=== PATIENT | male | born 1965 | race American Indian/Alaskan Native ===

== ENCOUNTER 2021-03-25 22:30 | Emergency (ER) | payer SELFPAY ==
[2021-03-26 00:41] VITALS: BP 171/98
[2021-03-26] MEDS ORDERED: TETANUS,DIPH,PERTUSS(ACELL) VACCINE 0.5 ML SYRINGE IM ONE (00:48)
[2021-03-26] MEDS ORDERED: IBUPROFEN 600 MG TAB PO ONE (00:48)
[2021-03-26] MEDS ORDERED: ACETAMINOPHEN 500 MG TAB PO ONE (00:49)
--- NOTE | 2021-03-26 01:30 | XRay Report ---
RIGHT HAND 3 VIEWS INDICATION / CLINICAL INFORMATION: TRAUMA - PAIN COMPARISON: None available. FINDINGS: BONES / JOINT(S): No acute fracture or subluxation. Mild DJD greatest at the first carpometacarpal flor int. Moderate DJD is noted at the distal radioulnar joint. SOFT TISSUES: No significant abnormality. ADDITIONAL FINDINGS: None. Signer Name: Julio Naik MD Signed: 03/26/2021 1:25 AM Workstation Name: [id number]
[2021-03-26] MEDS ORDERED: LIDOCAINE-MPF (1%) 10 MG/1 ML VIAL 5 ML INFILTRATI ONE (01:39)
--- NOTE | 2021-03-26 03:10 | Emergency Department Report ---
ED Upper Extremity Inj HPI - General Chief Complaint: Extremity Injury, Upper Stated Complaint: RT FINGER INJURY Source: patient Mode of arrival: Ambulatory Limitations: No Limitations - History of Present Illness Initial Comments: Patient is a 55-year-old -[place]ish male with a history of hypertension who presents to the ED with complaint of acute onset painful bleeding distal right ring finger laceration on palmar side after a metallic dog slammed onto his right hand about 1 hour ago at work. Patient states that the bleeding is well controlled at this time. Patient states that he is not up-to-date with his tetanus vaccinations. Patient denies loss of consciousness, dizziness, syncope, nausea and vomiting, numbness and tingling or weakness of right hand or right ring finger. MD Complaint: Injury to:: right, finger (ring finger pain with bleeding laceration) -: Sudden, hour(s) (1) Other Extremity Injury: Hand: Right (right ring finger bleeding laceration with pain) Other Injuries: none Handedness: right Place: work Severity scale (0 -10): 7 Improves With: none Worsens With: movement of extremity Context: direct blow (metallic door slammed onto his distal right ring finger causing bleeding laceration), laceration, injury Associated Symptoms: denies other symptoms. denies: weakness, numbness, neck pain, suspects foreign body, nausea/vomiting, heard/felt popping sensat - Related Data Previous Rx's Medication Instructions Recorded Last Taken Type Ibuprofen [Motrin] 800 mg PO Q8HR PRN #30 tablet 03/26/21 Unknown Rx cephALEXin [Keflex] 500 mg PO Q8HR #30 cap 03/26/21 Unknown Rx Allergies Allergy/AdvReac Type Severity Reaction Status Date / Time No Known Allergies Allergy Verified 03/26/21 00:40 ED Review of Systems ROS: Stated complaint: RT FINGER INJURY Other details as noted in HPI Constitutional: denies: chills, fever Eyes: denies: eye pain, eye discharge, vision change ENT: denies: ear pain, throat pain Respiratory: denies: cough, shortness of breath, wheezing Cardiovascular: denies: chest pain, palpitations Endocrine: no symptoms reported Gastrointestinal: denies: abdominal pain, nausea, diarrhea Genitourinary: denies: urgency, dysuria Musculoskeletal: joint swelling (Distal right ring finger pain and swelling), arthralgia (Distal right ring finger bleeding laceration on palmar side with localized tenderness). denies: back pain Skin: other (Bleeding laceration wound on distal right ring finger on palmar side). denies: rash, lesions Neurological: denies: headache, weakness, paresthesias Psychiatric: denies: anxiety, depression Hematological/Lymphatic: denies: easy bleeding, easy bruising ED Past Medical Hx - Past Medical History Hx Hypertension: Yes - Medications Home Medications: Home Medications Medication Instructions Recorded Confirmed Last Taken Type Ibuprofen [Motrin] 800 mg PO Q8HR PRN #30 tablet 03/26/21 Unknown Rx cephALEXin [Keflex] 500 mg PO Q8HR #30 cap 03/26/21 Unknown Rx ED Physical Exam - General Limitations: No Limitations General appearance: alert, in no apparent distress - Head Head exam: Present: atraumatic, normocephalic, normal inspection - Eye Eye exam: Present: normal appearance, PERRL, EOMI Pupils: Present: normal accommodation - ENT ENT exam: Present: normal exam, normal orophraynx, mucous membranes moist, TM's normal bilaterally, normal external ear exam - Neck Neck exam: Present: normal inspection, full ROM - Respiratory Respiratory exam: Present: normal lung sounds bilaterally. Absent: respiratory distress, wheezes, rales, rhonchi, chest wall tenderness, accessory muscle use, decreased breath sounds, prolonged expiratory - Cardiovascular Cardiovascular Exam: Present: normal rhythm, bradycardia, normal heart sounds. Absent: systolic murmur, diastolic murmur, rubs, gallop - GI/Abdominal GI/Abdominal exam: Present: soft, normal bowel sounds. Absent: tenderness, guarding, rebound, hyperactive bowel sounds, hypoactive bowel sounds, organomegaly - Extremities Exam Extremities exam: Present: normal inspection, full ROM, tenderness (Palpable severe right ring finger tenderness due to a bleeding 3 cm laceration on palmar side), normal capillary refill. Absent: pedal edema, joint swelling, calf tenderness, other - Back Exam Back exam: Present: normal inspection, full ROM. Absent: tenderness, CVA tenderness (R), CVA tenderness (L), muscle spasm, paraspinal tenderness, vertebral tenderness - Neurological Exam Neurological exam: Present: alert, oriented X3, CN II-XII intact, normal gait, reflexes normal - Psychiatric Psychiatric exam: Present: normal affect, normal mood - Skin Skin exam: Present: warm, dry, intact, normal color, ecchymosis (Moderate dorsal right ring and middle finger ecchymosis on the nailbed), other (Bleeding distal right ring finger 3 cm laceration on palmar side). Absent: rash ED Course Vital Signs 03/26/21 00:30 Temperature 97.9 F Pulse Rate 57 L Respiratory 18 Rate Blood Pressure 171/98 O2 Sat by Pulse 100 Oximetry - Laceration /Wound Repair Right Distal Palm Finger Wound Location: upper extremity (distal right ring finger laceration on palmar side) Wound Length (cm): 3 Wound's Depth, Shape: superficial, irregular Wound Explored: contaminated Irrigated w/ Saline (ccs): 150 Betadine Prep?: Yes Anesthesia: 1% Lidocaine Volume Anesthetic (ccs): 5 Wound Debrided: extensive Wound Repaired With: sutures Suture Size/Type: 4:0, proline Number of Sutures: 7 Layer Closure?: No Sterile Dressing Applied?: Yes Progress: The wound was cleaned extensively with normal saline and Betadine solutions. Lidocaine 1% solution was injected as a digital block and when anesthesia was fully achieved, the wound was sutured up per protocol with Prolene 4-0 Prolene sutures. The patient tolerated the procedure well. The wound was then dressed appropriately and the patient will discharge home on pain medication and pr ophylactic antibiotics. Patient was advised to return to the ED immediately if symptoms get worse, otherwise advised to return to the ED in 12 to 14 days for suture removal. ED Medical Decision Making - Radiology Data Radiology results: report reviewed, image reviewed [facility] [address] [place] [address] XRay Report Signed Patient: JERRY MCGOVERN MR#: [id number] 4 : 1965 Acct:[id number] Age/Sex: 55 / M ADM Date: 03/25/21 Loc: ED Attending Dr: Ordering Physician: EARLIEN BOOKER Date of Service: 03/26/21 Procedure(s): XR hand 3+V RT Accession Number(s): [id number] cc: EARLINE BOOKER Fluoro Time In Minutes: RIGHT HAND 3 VIEWS INDICATION / CLINICAL INFORMATION: TRAUMA - PAIN COMPARISON: None available. FINDINGS: BONES / JOINT(S): No acute fracture or subluxation. Mild DJD greatest at the first carpometacarpal joint. Moderate DJD is noted at the distal radioulnar joint. SOFT TISSUES: No significant abnormality. ADDITIONAL FINDINGS: None. Signer Name: Julio Naik MD Signed: 03/26/2021 1:25 AM Workstation Name: [id number] Transcribed By: CASTRO Dictated By: Julio Naik MD Electronically Authenticated By: Julio Naik MD Signed Date/Time: 03/26/21124 DD/ 2 TD/TT: - Medical Decision Making This is a 55-year-old -[place]ish male with a history of hypertension who presents to the ED with complaint of acute onset painful bleeding distal right ring finger laceration on palmar side after a metallic door slammed onto his right hand about 1 hour ago at work. Patient states that the bleeding is well controlled at this time. Patient states that he is not up-to-date with his tetanus vaccinations. In the ED, patient is alert and oriented x3 and is not in any distress. Patient was treated for pain and also received booster tetanus vaccination. Right hand x-ray showed no acute fractures or subluxation of distal right middle and ring finger or elsewhere in the right hand. The right ring finger laceration wound was cleaned extensively with normal saline and Betadine solutions. Lidocaine 1% solution was used as a local anesthetic. When anesthesia was fully achieved, the wound was sutured per protocol and the patient tolerated the procedure well. The wound was then dressed appropriately. On reevaluation, patient's pain is well controlled medications. Patient is now arrived neurovascularly intact on distal right ring and middle fingers. Patient was discharged home on pain medications and prophylactic antibiotics and advised to follow-up with his primary care physician in 7 to 10 days for reevaluation or return to the ED immediately if symptoms get worse. Patient was otherwise advised to return to the ED in 12 to 14 days for suture removal. - Differential Diagnosis finger laceration; puncture wound; finger fracture; finger contusion Critical care attestation.: If time is entered above; I have spent that time in minutes in the direct care of this critically ill patient, excluding procedure time. ED Disposition Clinical Impression: Laceration of right ring finger w/o foreign body w/o damage to nail Qualifiers: Encounter type: initial encounter Qualified Code(s): S61.214A - Laceration without foreign body of right ring finger without damage to nail, initial encounter Contusion of right hand including fingers Qualifiers: Encounter type: initial encounter Qualified Code(s): S60.221A - Contusion of right hand, initial encounter; S60.00XA - Contusion of unspecified finger without damage to nail, initial encounter Disposition: 01 HOME / SELF CARE / HOMELESS Is pt being admited?: No Does the pt Need Aspirin: No Condition: Stable Instructions: Contusion, [id number], Subungual Hematoma, [id number], Laceration Care, Adult, [id number], Sutured Wound Care, [id number] Additional Instructions: Your right hand x-ray showed no acute fractures or subluxations of the distal right middle and ring fingers or any other fractures and subluxations. Therefore take medications with food, drink plenty of fluids and follow-up with your primary care physician in 7 to 10 days for reevaluation. Return to the ED immediately if symptoms get worse, or otherwise return to the ED in 12 to 14 days for suture removal. Prescriptions: cephALEXin [Keflex] 500 mg PO Q8HR #30 cap Ibuprofen [Motrin] 800 mg PO Q8HR PRN #30 tablet PRN Reason: Pain , Severe (7-10) Referrals: [facility] [Provider Group] - 7-10 days Time of Disposition: 03:19 Print Language: ARMENIAN
== END 2021-03-26 03:46 | disposition home or self-care (01) ==
LOC: ED 22:30
DX: S61.214A Laceration without foreign body of right ring finger without damage to nail, initial encounter (principal); S60.00XA Contusion of unspecified finger without damage to nail, initial encounter; I10 Essential (primary) hypertension; Z79.899 Other long term (current) drug therapy; W54.1XXA Struck by dog, initial encounter; Y93.89 Activity, other specified; Y92.89 Other specified places as the place of occurrence of the external cause; Y99.8 Other external cause status
CPT/HCPCS: 90471; 90715; 99283